=== PATIENT | male | born 1945 | race Native Hawaiian/Other Pacific Islander ===

== ENCOUNTER 2017-02-28 06:51 | Outpatient (CLI) | payer OTHER, BC ==
[2017-02-28] MEDS ORDERED: LIPITOR80 MG PO (18:14)
== END 2017-02-28 06:55 | disposition short-term general hospital (02) ==
LOC: AMB 06:51
DX: R55 Syncope and collapse (principal); R22.0 Localized swelling, mass and lump, head; R51 Headache; W18.39XA Other fall on same level, initial encounter; Y92.098 Other place in other non-institutional residence as the place of occurrence of the external cause
CPT/HCPCS: A0425; A0427

== ENCOUNTER 2017-02-28 07:08 | Observation (INO) | payer OTHER, BC ==
[~2017-02-28] VITALS: Ht 175.3 cm; Wt 83.6 kg
[2017-02-28 07:15] VITALS: BP 150/79; TEMP 98.6
[2017-02-28 07:30] LABS: PLATELET COUNT 230 K/uL (142-355)
[2017-02-28 07:38] LABS: POTASSIUM 3.7 mmol/L (3.6-5.2); SODIUM 137 mmol/L (136-145)
[2017-02-28 13:17] VITALS: BP 144/79; TEMP 98; Ht 175.3 cm; Wt 83.6 kg
[2017-02-28 15:54] VITALS: BP 137/79; TEMP 98.3
[2017-02-28] MEDS ORDERED: LIPITOR80 MG PO (18:14)
[2017-02-28 20:00] VITALS: BP 136/80; TEMP 98.6
[2017-03-01] VITALS: BP 127/68; TEMP 98.4
[2017-03-01 04:00] VITALS: BP 147/76; TEMP 98.6
[2017-03-01 05:37] LABS: PLATELET COUNT 203 K/uL (142-355)
[2017-03-01 06:26] LABS: SODIUM 139 mmol/L (136-145)
[2017-03-01 08:00] VITALS: BP 134/83; TEMP 98.6
[2017-03-01 12:00] VITALS: BP 134/76; TEMP 97.2
--- NOTE | 2017-03-01 13:52 | NUR ---
IV D/C'D WITH TIP INTACT PRESSURE DRESSING APPLIED. D/C INSTRUCTIONS GIVEN. PT AND VERBALIZED UNDERSTANDING.
--- NOTE | 2017-03-01 14:18 | NUR ---
PT D/C'D HOME IN STABLE COND VIA WC.
== END 2017-03-01 14:08 | disposition home or self-care (01) ==
LOC: ED 07:08 → MED/SURG 09:30
PROVIDERS: Student in an Organized Health Care Education/Training Program; ADMIT Emergency Medicine
DX: R55 Syncope and collapse (principal); I10 Essential (primary) hypertension; R10.11 Right upper quadrant pain; S00.03XA Contusion of scalp, initial encounter; W19.XXXA Unspecified fall, initial encounter; Y93.89 Activity, other specified; Y92.89 Other specified places as the place of occurrence of the external cause; Y99.8 Other external cause status
CPT/HCPCS: 36415; 80053; 81000; 82550; 83735; 84484; 85027; 93005; 93306; 94760; 96365; 96366; 99220; 99285; G0378

== ENCOUNTER 2019-04-15 13:50 | Outpatient (CLI) | payer OTHER, BC ==
[~2019-04-15 13:50] MED LIST: LIPITOR80 MG PO
[2019-04-15 14:11] LABS: POTASSIUM 4.3 mmol/L (3.6-5.2)
== END 2019-04-15 19:24 | disposition home or self-care (01) ==
LOC: LABW 13:50
PROVIDERS: Internal Medicine Cardiovascular Disease
DX: Z79.899 Other long term (current) drug therapy (principal)
CPT/HCPCS: 36415; 80048; 80061

== ENCOUNTER 2020-04-13 15:52 | Outpatient (CLI) | payer BC, OTHER | END 2020-04-13 21:17 | disposition home or self-care (01) | LOC: INF 15:52 | PROVIDERS: ATTEND Internal Medicine | DX: Z23 Encounter for immunization (principal) | CPT/HCPCS: 96372 ==

== ENCOUNTER 2020-05-10 14:01 | Outpatient (CLI) | payer BC, OTHER | END 2020-05-10 21:28 | disposition home or self-care (01) | LOC: INF 14:01 | PROVIDERS: ATTEND Internal Medicine | DX: Z23 Encounter for immunization (principal) | CPT/HCPCS: 96372 ==

== ENCOUNTER 2021-08-28 20:03 | Emergency (ER) | payer BC ==
[~2021-08-28] VITALS: Ht 175.3 cm; Wt 86.2 kg
[2021-08-28 21:55] VITALS: BP 138/74; TEMP 98.4
== END 2021-08-28 21:44 | disposition home or self-care (01) ==
LOC: ED 20:03
PROC: 0HQ1XZZ Repair Face Skin, External Approach (ICD-10-PCS; principal; 2021-08-28)
PROC: 0HQGXZZ Repair Left Hand Skin, External Approach (ICD-10-PCS; 2021-08-28)
DX: S01.112A Laceration without foreign body of left eyelid and periocular area, initial encounter (principal); S61.412A Laceration without foreign body of left hand, initial encounter; S61.217A Laceration without foreign body of left little finger without damage to nail, initial encounter; R51.9 Headache, unspecified; X50.9XXA Other and unspecified overexertion or strenuous movements or postures, initial encounter; Y93.K9 Activity, other involving animal care; Y92.89 Other specified places as the place of occurrence of the external cause
CPT/HCPCS: 99283; J2001

== ENCOUNTER 2021-10-06 11:06 | Outpatient (CLI) | payer BC | END 2021-10-06 21:03 | disposition home or self-care (01) | LOC: RAD 11:06 | PROVIDERS: ATTEND Registered Nurse | DX: R79.89 Other specified abnormal findings of blood chemistry (principal) ==

== ENCOUNTER 2022-04-23 09:35 | Outpatient (CLI) | payer BC ==
[2022-04-23 10:02] LABS: PLATELET COUNT 180 K/uL (142-355)
[2022-04-23 10:36] LABS: POTASSIUM 4.1 mmol/L (3.6-5.2)
== END 2022-04-23 19:02 | disposition home or self-care (01) ==
LOC: LABW 09:35
PROVIDERS: ATTEND Internal Medicine
DX: I10 Essential (primary) hypertension (principal); R53.83 Other fatigue; Z79.899 Other long term (current) drug therapy; E55.9 Vitamin D deficiency, unspecified; R79.89 Other specified abnormal findings of blood chemistry
CPT/HCPCS: 36415; 80053; 82024; 82088; 82306; 82533; 82550; 82607; 82728; 82746; 83036; 83540; 83550; 83735; 83835; 84100; 84244; 84436; 84439; 84443; 85027; 85652; 86038; 86431